=== PATIENT | female | born 1995 | race Caucasian/White ===

== ENCOUNTER 2019-12-25 14:18 | Emergency (ER) | payer SELFPAY ==
[~2019-12-25] VITALS: Ht 154.9 cm; Wt 55.5 kg
[2019-12-25 14:26] VITALS: TEMP 98.5
[2019-12-25 16:23] VITALS: BP 106/72; PULSE 74
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
== END 2019-12-25 16:24 | disposition home or self-care (01) ==
LOC: COL.ER 14:18
DX: S60.221A Contusion of right hand, initial encounter (principal); S05.11XA Contusion of eyeball and orbital tissues, right eye, initial encounter; Y04.0XXA Assault by unarmed brawl or fight, initial encounter

== ENCOUNTER 2022-04-11 06:50 | Inpatient (IN) | payer SELFPAY ==
[2022-04-11] VITALS (27 sets, daily range): BP systolic 98–141; BP diastolic 51–80; PULSE 72–104; TEMP 97.6–98.7
[~2022-04-11] VITALS: Ht 154.9 cm; Wt 71.4 kg
[~2022-04-11 06:50] MED LIST: ZOFRAN ODT4 MG PO
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
[2022-04-11] MEDS ORDERED: PRENATAL TABLET PO (07:40)
[2022-04-11] MEDS ORDERED: NATURAL IRON65 MG (07:40)
[2022-04-11 08:14] LABS: BASO % 0.2 % (0.0-2.0); EOS # 0.1 K/mm3 (0.0-0.7); EOS % 0.5 % (0.0-4.0); GRAN # 7.6 K/mm3 (1.4-6.5); GRAN % 69.5 % (42.2-75.2); HEMATOCRIT 32.3 % (37.0-47.0); HEMOGLOBIN 10.4 g/dl (12.5-16.0); LYMPH % 17.9 % (20.0-51.0); MEAN CELL VOLUME 86 fl (80.0-100.0); MEAN CORPUSCULAR HEMOGLOBIN 28 pg (27-31); MEAN CORPUSCULAR HGB CONC 32 g/dl (33.0-37.0); MEAN PLATELET VOLUME 11.5 fl (7.4-10.4); MONO # 1.3 K/mm3 (0.1-0.6); MONO % 11.6 % (1.7-9.3); PLATELET COUNT 239 K/mm3 (130-400); RED BLOOD COUNT 3.74 M/mm3 (4.10-5.30); REDCELL DISTRIBUTION WIDTH-CV 16.5 % (11.5-14.5)
--- NOTE | 2022-04-11 11:48 | NUR ---
PT SITTING FOR EPIDURAL. RN UNABLE TO CONTINOUSLY MONITOR FHR. PULSE OX ON, IV BOLUS GIVEN, TIMEOUT COMPLETED.
--- NOTE | 2022-04-11 12:08 | NUR ---
PT LAYING DOWN AFTER EPIDURAL. PT TOLERATED PROCEDURE WELL. PT PAIN IMPROVING PER PT REPORT. MONITORS ADJUSTED. FHR IN THE 120'S AT THIS TIME. VS WNL. CAREPLAN UPDATED.
--- NOTE | 2022-04-11 13:14 | NUR ---
1252-PT HAS URGE TO PUSH. DR. BLACKWOOD AT BEDSIDE. SVE /+1 PER MD. 1257-NURSERY RN AT BEDSIDE. PERICARE COMPLETED. PT FEET PLACED ON FOOT PADS. PT COACHED ON PUSHING BY RN. PT VERBALIZED UNDERSTANDING. PT PUSHING WITH CONTRACTIONS. 1302- OF INFANT HEAD ANF BODY BY GR. DAVIS. 1305-DR. BLACKWOOD PERFORMING FUNDAL MASSAGE TO EXPRESS UTERUS. PT STABLE AND TOLERATING FUNDAL MASSAGE WELL. VS WNL. BLEEDING WNL.
--- NOTE | 2022-04-11 13:33 | NUR ---
1332-DR. BLACKWOOD PERFORMING MANUAL EXTRACTION OF PLACENTA. PT STABLE AT THIS TIME. VS WNL. 1333-MANUAL DELIVERY OF PLACENTA BY DR. FLORES. PT TOLERATED WELL. PT DENIES ANY PAIN. VS WNL. BLEEDING WNL. PERICARE COMPLETED. PT STABLE AT THIS TIME.
[2022-04-12 02:00] VITALS: BP 115/68; PULSE 84; TEMP 97.7
[2022-04-12 08:48] VITALS: BP 100/62; PULSE 69; TEMP 97.5
--- NOTE | 2022-04-12 09:27 | NUR ---
Initial visit; Patient thanked Collections Curator for offering congratulations and God's blessings for the of her son. Collections Curator thanked patient for choosing [facility]. Family member was also present.
[2022-04-12] MEDS ORDERED: IBU800 M1 PO (12:06)
== END 2022-04-12 17:15 | disposition home or self-care (01) | DRG 805 ==
LOC: LDR 06:50 → OB 06:50 → LDR 11:42 → OB 15:30
PROVIDERS: ADMIT Student in an Organized Health Care Education/Training Program
PROC: 10E0XZZ Delivery of Products of Conception, External Approach (ICD-10-PCS; principal; 2022-04-11)
PROC: 10D17Z9 Manual Extraction of Products of Conception, Retained, Via Natural or Artificial Opening (ICD-10-PCS; 2022-04-11)
PROC: 10907ZC Drainage of Amniotic Fluid, Therapeutic from Products of Conception, Via Natural or Artificial Opening (ICD-10-PCS; 2022-04-11)
PROC: 3E033VJ Introduction of Other Hormone into Peripheral Vein, Percutaneous Approach (ICD-10-PCS; 2022-04-11)
DX: O48.0 Post-term pregnancy (principal); O44.13 Complete placenta previa with hemorrhage, third trimester; Z37.0 Single live birth; O63.9 Long labor, unspecified; O99.62 Diseases of the digestive system complicating childbirth; K43.9 Ventral hernia without obstruction or gangrene; O99.02 Anemia complicating childbirth; D64.9 Anemia, unspecified; O62.2 Other uterine inertia; Z3A.40 40 weeks gestation of pregnancy
CPT/HCPCS: J0690; J2590; J2795; J7120